=== PATIENT | female | born 1980 | race African-American/Black ===

== ENCOUNTER → 2020-01-04 | Day surgery (SDC) | payer OTHER ==
[~2020-01-04] MED LIST: FENTANYL CITRATE/PF 100MCG/2 ML INJ ONE; LIDOCAINE HCL 2% LOCAL INJ 5 ML SDV VIAL INJ ONE; MIDAZOLAM HCL 2 MG/2 ML VIAL ONE; MULTIVITAMINS1 EAC7 PO; PROPOFOL IV EMULSION 10 MG/ML 20 ML VIAL ONE
--- OUTSIDE RECORDS SUMMARY | 2020-01-04 07:15 | XMS REPORT ---
Author Author [facility] Organization [facility] Address Unknown Phone Unavailable Care Team Providers Care Senior Java Software Engineer Name Role Phone Unavailable Unavailable Problems This patient has no known problems. Allergies, Adverse Reactions, Alerts This patient has no known allergies or adverse reactions. Medications This patient has no known medications. Encounters Start Date/Time End Date/Time Encounter Type Admission Type [facility] Care Department Encounter ID 2018-12-29 13:19:25 Outpatient [id number]
[2020-01-04 14:05] VITALS: BP 134/90
--- NOTE | 2020-01-04 17:36 | Operative Report ---
DATE OF PROCEDURE: 01/04/2020 SURGEON: Juan Manuel Torres MD PREOPERATIVE DIAGNOSIS: Chronic gastroesophageal reflux disease. POSTOPERATIVE DIAGNOSES: 1. Hiatal hernia. 2. Chronic gastroesophageal reflux disease. 3. Submucosal nodule. PREOPERATIVE INDICATION: Assess for mucosal disease. PROCEDURE: Esophagogastroduodenoscopy with biopsies (CPT 91656). ANESTHESIA: Moderate sedation. ASSISTANTS: None. FLUID: As per anesthesia. ESTIMATED BLOOD LOSS: Minimal. DRAINS: None. COMPLICATIONS: None. SPECIMENS: Biopsy of antrum for submucosal mass, diagnostic purposes x2. GRAFTS: None. FINDINGS: 1. Small hiatal hernia. 2. Submucosal lesion in the antrum at the level of the lesser curvature of stomach. PROCEDURE IN DETAIL: The patient was brought into the endoscopy suite and was sedated with IV propofol. A preprocedure pause was performed. An adult-sized endoscope was introduced to the oropharynx and guided to the pylorus. The patient did not tolerate the procedure very well. She was dry heaving and because of this, her pylorus was quite spasmodic and I was not able to intubate and enter the duodenal bulb. However, I did identify a small hiatal hernia and submucosal 1 cm lesion in the antrum at the level of the lesser curvature of the stomach. This was biopsied x2 with cold forceps and sent to pathology. Prior to removing the scope, the stomach was desufflated. The patient tolerated the procedure moderately. Counts were correct. Juan Manuel Torres MD C/MODL /[id number]
== END | disposition home or self-care (01) ==
LOC: OR 07:13
PROVIDERS: ATTEND Surgery
DX: K21.9 Gastro-esophageal reflux disease without esophagitis (principal); K44.9 Diaphragmatic hernia without obstruction or gangrene; K31.89 Other diseases of stomach and duodenum; D64.9 Anemia, unspecified; E66.01 Morbid (severe) obesity due to excess calories; Z01.812 Encounter for preprocedural laboratory examination; Z11.59 Encounter for screening for other viral diseases; Z68.42 Body mass index [BMI] 45.0-49.9, adult
CPT/HCPCS: 43239; 81025; 87635; 88305; 88312; J2001; J2250; J2704; J3010

== ENCOUNTER 2020-02-01 09:42 | Inpatient (IN) | payer OTHER ==
[2020-01-28 11:32] LABS: BASOPHILS # (AUTO) 0.1 (0.0-0.1); BASOPHILS % 0.7 % (0.0-1.0); EOSINOPHILS # (AUTO) 0.2 (0.0-0.4); HEMATOCRIT 39.8 % (34.2-44.1); HEMOGLOBIN 12.9 g/dL (12.0-16.0); LYMPHOCYTES # (AUTO) 2.4 (1.0-3.2); LYMPHOCYTES % 30.9 % (18.0-39.1); MEAN CORPUSCULAR HEMOGLOBIN 29.7 pg (28-32); MEAN CORPUSCULAR HGB CONC 32.4 g/dL (31-35); MEAN CORPUSCULAR VOLUME 91.7 fL (81-99); MONOCYTES # (AUTO) 0.5 (0.2-0.8); MONOCYTES % 6.1 % (4.4-11.3); NEUTROPHILS # (AUTO) 4.5 (2.1-6.9); PLATELET COUNT 291 x10e3/uL (140-360); RED BLOOD COUNT 4.34 x10e6/uL (3.6-5.1); RED CELL DISTRIBUTION WIDTH 13.9 % (11.7-14.4)
[~2020-02-01] VITALS: Ht 157.5 cm; Wt 107.0 kg
[~2020-02-01 09:42] MED LIST changes: -FENTANYL CITRATE/PF 100MCG/2 ML INJ ONE; -LIDOCAINE HCL 2% LOCAL INJ 5 ML SDV VIAL INJ ONE; -MIDAZOLAM HCL 2 MG/2 ML VIAL ONE; -PROPOFOL IV EMULSION 10 MG/ML 20 ML VIAL ONE
[2020-02-01] MEDS ORDERED: CEFAZOLIN SOD 1 GM/NS 50ML 100 ML IV ONE (10:21)
[2020-02-01] MEDS ORDERED: BUPIVACAINE 0.25% 30ML SDV INJ ONE (10:35)
[2020-02-01] MEDS ORDERED: SCOPOLAMINE 1.5 MG PATCH TOP SCH (12:15)
[2020-02-01] MEDS ORDERED: LACTATED RINGER'S 1,000 ML IV SCH (12:15)
[2020-02-01] MEDS ORDERED: SUGAMMADEX SODIUM 200 MG/2 ML VIAL IV ONE (13:24)
[2020-02-01] MEDS ORDERED: FENTANYL CITRATE/PF 100MCG/2 ML INJ ONE (13:46)
--- NOTE | 2020-02-01 14:23 | Operative Report ---
DATE OF PROCEDURE: 02/01/2020 SURGEON: Juan Manuel Torres MD PREOPERATIVE DIAGNOSES: 1. Hiatal hernia. 2. Gastroesophageal reflux disease. POSTOPERATIVE DIAGNOSES: 1. Hiatal hernia. 2. Gastroesophageal reflux disease. PREOPERATIVE INDICATION: Treat disease, prevent complications related to reflux disease as well as hiatal hernia. PROCEDURE: Laparoscopic hiatal hernia repair. ANESTHESIA: General. RUBBER CURER: Chidi Olivia, regional vice president surgical sales (needed due to complexity of case). FLUIDS: 1 L crystalloid. ESTIMATED BLOOD LOSS: 20 mL. DRAINS: None. COMPLICATIONS: None. SPECIMENS: None. GRAFTS: None. FINDINGS: Hiatal hernia. GRAFTS: None. PROCEDURE IN DETAIL: The patient was brought to the operating room and was intubated under general endotracheal anesthesia. She was sterilely prepped and draped in the usual fashion. A preprocedure pause was performed, identifying the patient, use of preoperative antibiotics, intended procedure, and staff surgeon. Access was gained via a 5 mm left subcostal incision using a Veress needle. The abdomen was insufflated. Four additional trocars were placed in standard position. A liver retractor was used to expose the stomach and hiatus. I then incised the gastrohepatic ligament via the pars flaccida technique and was able to mobilize and dissect out a hiatal hernia from the right and left valdemar of the diaphragm. I then repaired the hiatus posteriorly with 2-0 Surgidac suture in an interrupted fashion in order to fix the crural defect. Once that was complete, we then verified hemostasis, removed the liver tractor and closed the large port site with 0 Vicryl suture using a Daljit Mercado technique. We then desufflated the abdomen and closed the incision sites with 4-0 Monocryl suture in a subcuticular fashion. Dermabond dressings were applied. A 0.25% bupivacaine was used both at the preperitoneal incision sites. The patient tolerated the procedure well. Type of wound was type 1, clean. Juan Manuel Torres MD C/MODL /[id number]
[2020-02-01] MEDS ORDERED: MORPHINE SULFATE 2 MG/ML SYR 1ML ONE ×2 (14:36→14:46)
--- NOTE | 2020-02-01 14:38 | Operative Report ---
DATE OF PROCEDURE: 02/01/2020 SURGEON: Juan Manuel Torres MD This is the self-pay portion. PREOPERATIVE DIAGNOSIS: Morbid obesity, BMI 44. POSTOPERATIVE DIAGNOSIS: Morbid obesity, BMI 44. PREOPERATIVE INDICATION: Treat disease, prevent complications related to comorbid conditions of obesity. PROCEDURES: Laparoscopic vertical sleeve gastrectomy. ANESTHESIA: General. FIRE CONTROL TECHNICIAN B: hCidi Olivia, surgical technician (needed due to complexity of case). FLUIDS: 1 L crystalloid. ESTIMATED BLOOD LOSS: 40 mL. DRAINS: None. COMPLICATION: None. SPECIMENS: Partial stomach. GRAFTS: None. FINDINGS: Negative intraoperative leak test. PROCEDURE IN DETAIL: The patient was brought to the operating room and was intubated under general endotracheal anesthesia. She was sterilely prepped and draped in the usual fashion. A preprocedure pause performed identifying the patient, use of perioperative antibiotics, intended procedure, and staff surgeon. Access was gained via a 5 mm left subcostal incision using a Veress needle. Abdomen was insufflated. Four additional trocars were placed in standard positions. The liver retractor was used to expose the stomach and hiatus. The stomach was mobilized along the greater curvature using the [place] LigaSure device from about 3 cm proximal to the pyloric valve to the left valdemar of the diaphragm. A 32-Salvad[place] suction bougie was placed along the lesser curvature of the stomach. The greater curvature of stomach was resected with multiple firings of a 60 mm purple load Covidien stapling device. Once that was complete, we then submerged the sleeve under saline and blue air through the bougie. No leaks were identified. The bougie was then removed. We then placed hemoclips on the staple line, where there were necessary. I closed the large port site with 0 Vicryl sutures a Daljit Mercado technique. The specimen was removed through the right periumbilical port site. I then verified hemostasis and removed the liver retractor. We desufflated the abdomen and closed the incision sites with 4-0 Monocryl suture in a subcuticular fashion. Dermabond dressings were applied. A 0.25% bupivacaine was used both at the preperitoneal incision sites. The patient tolerated the procedure well. Type of wound was type 2, clean, contaminated. MD DORINA Smyth/SOFIEL /[id number]
[2020-02-01] MEDS ORDERED: LABETALOL HCL 20 ML ONE (14:49)
[2020-02-01] MEDS ORDERED: KETOROLAC TROMETHAMINE 30 MG/ML VIAL ONE (15:03)
[2020-02-01] MEDS ORDERED: ACETAMINOPHEN 1000 MG/100 ML 100 ML IV ONE (15:03)
[2020-02-01] MEDS ORDERED: MORPHINE SULFATE INJ 4 MG/ML INJ 1ML ONE (15:14)
--- OUTSIDE RECORDS SUMMARY | 2020-02-01 15:22 | XMS REPORT | Continuity of Care Document ---
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 Diagnosis 04/24/2017 [id number] 2568 Supraventricular tachycardia A ctive Problem [id number] 2568 Leukocytosis, unspecified type Active Problem 2.16840.1.243375.4.391.11.2 2568 Acute viral syndrome Active Problem 04/24/2017 [id number] 2568 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 Adverse Reaction Info Not Available Adverse Reaction Active 04/16/2017 [id number] 2568 Immunizations No Data Provided for This Section Results No Data Provided for This Section Pathology Reports No Data Provided for This Section Diagnostic Reports No Data Provided for This Section Consultation Notes No Data Provided for This Section Discharge Summaries No Data Provided for This Section History and Physicals No Data Provided for This Section Vital Signs Vital Sign Value Date Comments Source Weight 241 04/16/2017 [id number] 2568 Height 61 0 04/16/2017 2.16.840.1.558948.4.391.11.2 2568 Temperature Oral (F) 98.8 F 04/16/2017 2.[id number] Heart Rate 94 04/16/2017 2.16.840.1.795196.4.391.11.2 2568 Diastolic (mm Hg) 80 04/16/2017 2.16.840.1.474909.4.391.11.16630 Systolic (mm Hg) 146 04/16/2017 2.16.840.1.474736.4.391.11.94062 Encounters No Data Provided for This Section Procedures No Data Provided for This Section Assessment and Plan No Data Provided for This Section Plan of Care No Data Provided for This Section Social History No Data Provided for This Section Family History No Data Provided for This Section Advance Directives No Data Provided for This Section Functional Status No Data Provided for This Section
--- OUTSIDE RECORDS SUMMARY | 2020-02-01 15:22 | XMS REPORT | Clinical Summary ---
Author Author [facility] Organization [facility] Address Unknown Phone Unavailable Care Team Providers Care Supervisor Record Press Name Role Phone Asked, No Pcp PCP Unavailable Allergies No Known Allergies Medications No known medications Active Problems No known active problems Resolved Problems Problem Noted Date Resolved Date Non-cardiac chest pain 01/07/2020 01/09/2020 Esophageal perforation (suspected) 01/07/202005/2020 Chronic GERD 01/07/2020 01/09/2020 Encounters Care Team Description Date Type Specialty Delmar Ruiz MD Non-cardiac chest pain (Primary Dx) 01/07/2020 [facility] Internal In dicine - Encounter 01/09/2020 01/07/2020 Travel 01/07/2020 Intake Access after 01/31/2019 Social History Date Tobacco Use Types Packs/Day Years Used Never Assessed Sex Assigned at Date Recorded Not on file Industry Job Start Date Occupation Not on file Not on file Not on file Travel End Travel History Travel Start No recent travel history available. Date Recorded COVID-19 Exposure Response 01/07/2020 4:43 PM CDT In the last month, have you been in contact with No / Unsure someone who was confirmed or suspected to have Coronavirus / COVID-19? Last Filed Vital Signs Reading Time Taken Comments Vital Sign 128/84 01/09/2020 7:57 AM CDT Blood Pressure 84 01/09/2020 7:57 AM CDT Pulse 36.7 C (98.1 F) 01/09/2020 7:57 AM CDT Temperature 18 01/09/2020 7:57 AM CDT Respiratory Rate 98% 01/09/2020 7:57 AM CDT Oxygen Saturation - - Inhaled Oxygen Concentration 111 kg (245 lb 8 oz) 01/09/2020 4:27 AM CDT Weight 157.5 cm (5' 2") 01/07/2020 5:15 PM CDT Height 44.9 01/07/2020 5:15 PM CDT Body Mass Index Plan of Treatment Health Maintenance Due Date Last Done Comments CERVICAL CANCER SCREENING 2002 INFLUENZA VACCINE 04/02/2020 Procedures Comments Procedure Name Priority Date/Time Associated Diag nosis ESTIMATED GFR Routine 01/09/2020 2:33 AM CDT PHOSPHORUS LEVEL Routine 01/09/2020 2:33 AM CDT IONIZED CALCIUM Routine 01/09/2020 2:33 AM CDT MAGNESIUM LEVEL Routine 01/09/2020 2:33 AM CDT CBC HEMOGRAM Routine 01/09/2020 2:33 AM CDT BASIC METABOLIC PANEL Routine 01/09/2020 2:33 AM CDT HELICOBACTER PYLORI ABS Routine 01/08/2020 8:56 AM CDT POC GLUCOSE Routine 01/08/2020 7:45 AM CDT TROPONIN Routine 01/08/2020 7:30 AM CDT ESTIMATED GFR Routine 01/08/2020 12:30 AM CDT PHOSPHORUS LEVEL Routine 01/08/2020 12:30 AM CDT MAGNESIUM LEVEL Routine 01/08/2020 12:30 AM CDT BASIC METABOLIC PANEL Routine 01/08/2020 12:30 AM CDT PARTIAL THROMBOPLASTIN Routine 01/08/2020 TIME (PTT) 12:30 AM CDT PROTHROMBIN TIME WITH INR Routine 01/08/2020 12:30 AM CDT HC COMPLETE BLD COUNT Routine 01/08/2020 W/AUTO DIFF 12:30 AM CDT POC GLUCOSE Routine 01/07/2020 11:[address] CHEST WO CONTRAST STAT 01/07/2020 9:09 PM CDT FL ESOPHAGRAM SINGLE STAT 01/07/2020 CONTRAST 9:08 PM CDT POC GLUCOSE Routine 01/07/2020 7:49 PM CDT POC GLUCOSE Routine 01/07/2020 6:27 PM CDT XR CHEST 1 VW PORTABLE STAT 01/07/2020 6:27 PM CDT ECG 12-LEAD STAT 01/07/2020 6:22 PM CDT HCG QUALITATIVE, URINE Routine 01/07/2020 SCREEN 6:00 PM CDT MANUAL DIFFERENTIAL Routine 01/07/2020 5:55 PM CDT ESTIMATED GFR Routine 01/07/2020 5:55 PM CDT TYPE AND SCREEN Routine 01/07/2020 5:55 PM CDT LACTIC ACID LEVEL Routine 01/07/2020 5:55 PM CDT PARTIAL THROMBOPLASTIN Routine 01/07/2020 TIME (PTT) 5:55 PM CDT PROTHROMBIN TIME WITH INR Routine 01/07/2020 5:55 PM CDT PHOSPHORUS LEVEL Routine 01/07/2020 5:55 PM CDT MAGNESIUM LEVEL Routine 01/07/2020 5:55 PM CDT CBC WITH PLATELET AND Routine 01/07/2020 DIFFERENTIAL 5:55 PM CDT BASIC METABOLIC PANEL Routine 01/07/2020 5:55 PM CDT after 01/31/2019 Results * Estimated GFR (01/09/2020 2:33 AM CDT) Only the most recent of 3 results within the time period is included. Estimated GFR >=90 mL/min/1.73 m2 [facility] Comment: [facility] Interpretation G1 >=90 Normal or high G2 60-89 Mildly decreased G3a 45-59 Mildly to moderately decreased G3b 30-44 Moderately to severely decreased G4 15-29 Severely decreased G5 <15 Kidney failure The eGFR was calculated using the Chronic Kidney Disease Epidemiology Collaboration (CKD-EPI) equation. Interpretation is based on recommendations of the National Kidney Foundation-Kidney Disease Outcomes Quality Initiative (NKF-KDOQI) published in 2014. Specimen Performing Organization Address City/[facility] Ph one Number [facility] DEPARTMENT OF [address] [place] [address] PATHOLOGY AND GENOMIC MEDICINE [address] * CBC hemogram (01/09/2020 2:33 AM CDT) WBC 7.63 4.50 - 11.00 k/uL [facility] RBC 3.93 (L) 4.20 - 5.50 m/uL [facility] HGB 11.9 (L) 12.0 - 16.0 g/dL [facility] HCT 35.9 (L) 37.0 - 47.0 % [facility] MCV 91.3 82.0 - 100.0 fL [facility] MCH 30.3 27.0 - 34.0 pg [facility] MCHC 33.1 31.0 - 37.0 g/dL [facility] RDW - SD 46.5 37.0 - 55.0 fL [facility] MPV 10.0 8.8 - 13.2 fL [facility] Platelet count 261 150 - 400 k/uL [facility] Nucleated RBC 0.00 /100 WBC [facility] Specimen Blood Performing Organization Address City/[facility] Ph one Number [facility] DEPARTMENT OF [address] [place] [address] PATHOLOGY AND GENOMIC MEDICINE [address] * Phosphorus level (01/09/2020 2:33 AM CDT) Only the most recent of 3 results within the time period is included. Phosphorus 2.9 2.4 - 4.5 mg/dL [facility] Specimen Blood Performing Organization Address City/[facility] Ph one Number [facility] DEPARTMENT OF [address] [place] [address] PATHOLOGY AND GENOMIC MEDICINE [address] * Magnesium level (01/09/2020 2:33 AM CDT) Only the most recent of 3 results within the time period is included. Magnesium 2.1 1.6 - 2.6 mg/dL [facility] Specimen Blood Performing Organization Address City/[facility] Ph one Number [facility] DEPARTMENT OF [address] [place] [address] PATHOLOGY AND GENOMIC MEDICINE [address] * Ionized calcium (01/09/2020 2:33 AM CDT) Pathologist [facility] pH 7.48 [facility] Ionized calcium 1.11 1.11 - 1.32 mmol/L [facility] Specimen Blood Performing Organization Address [facility] Ph one Number [facility] DEPARTMENT OF [address] [place] [address] PATHOLOGY AND [facility] MEDICINE [address] * Basic metabolic panel (01/09/2020 2:33 AM CDT) Only the most recent of 3 results within the time period is included. Pathologist [facility] Sodium 137 135 - 148 mEq/L [facility] Potassium 3.9 3.5 - 5.0 mEq/L [facility] Chloride 102 98 - 112 mEq/L [facility] CO2 25 24 - 31 mEq/L [facility] Anion gap 10@ANIO 7 - 15 mEq/L [facility] BUN 7 6 - 20 mg/dL [facility] Creatinine 0.90 0.50 - 0.90 mg/dL [facility] Glucose 90 65 - 99 mg/dL [facility] Calcium 8.8 8.3 - 10.2 mg/dL [facility] Specimen Blood Performing Organization Address [facility] Ph one Number [facility] DEPARTMENT OF [address] [place] [address] PATHOLOGY AND GENOMIC MEDICINE [address] * Helicobacter pylori Abs (01/08/2020 8:56 AM CDT) Pathologist [facility] Helicobacter Negative Negative [facility] Specimen Blood Performing Organization Address City/[facility] Ph one Number [facility] DEPARTMENT OF [address] [place] [address] PATHOLOGY AND GENOMIC MEDICINE [address] * POC glucose (01/08/2020 7:45 AM CDT) Only the most recent of 4 results within the time period is included. POC glucose 91 65 - 99 mg/dL [facility] Comment: PRESYBETERIAN Coating Machine Operator Helper Name: [facility] Device ID: [id number] Chartable: [facility] Notified RN Specimen Blood Performing Organization Address City/State/Zipcode Ph one Number [facility] DEPARTMENT OF [address] [place] [address] PATHOLOGY AND GENOMIC MEDICINE [place] PRESYBETERIAN [address] [place] [address] * Troponin (01/08/2020 7:30 AM CDT) Troponin <0.006 0.000 - 0.040 ng/mL [facility] Comment: PRESYBETERIAN In patients suspected of HOSPITAL having a myocardial infarction, along with all other appropriate clinical measures and actions including ECG and other diagnostics as appropriate, measure Ultra TnI at 0 hrs and at 3 hrs. Myocardial infarction VERY LIKELY The 0 hr TnI level is > 0.10 ng/mL Myocardial infarction LIKELY The 0 hr TnI level is > 0.04 ng/mL and 3 hr level is increased or decreased by at least 0.020 ng/mL Myocardial infarction VERY UNLIKELY Both the 0 hr and 3 hr TnI levels <= 0.04 ng/mL(within normal limits) OR 0 hr is > 0.04 ng/mL and 3 hr is increased OR decreased by less than 0.020 ng/mL Specimen Blood Performing Organization Address City/State/Zipcode Ph one Number [facility] DEPARTMENT OF [address] [place] [address] PATHOLOGY AND GENOMIC MEDICINE [place] [address] * Partial thromboplastin time, activated (01/08/2020 12:30 AM CDT) Only the most recent of 2 results within the time period is included. [facility] PTT 29.7 23.0 - 36.0 sec COMO Comment: PRESYBETERIAN PTT therapeutic range for HOSPITAL unfractionated heparin is 61.0-112.0 seconds which corresponds to Anti-Xa 0.3-0.7 U/ml. Specimen Blood Performing Organization Address City/State/[facility] Ph one Number [facility] DEPARTMENT OF [address] [place] [address] PATHOLOGY AND GENOMIC MEDICINE [address] * Prothrombin time with INR (01/08/2020 12:30 AM CDT) Only the most recent of 2 results within the time period is included. [facility] Prothrombin 13.7 11.5 - 14.5 sec [facility] INR 1.0 COMO Comment: PRESYBETERIAN The International Normalized HOSPITAL Ratio (INR) is a therapeutic monitoring tool for patients who are stable on oral anticoagulant therapy. An INR of 2.0-3.0 is suggested for deep vein thrombosis/pulmonary embolism. Specimen Blood Performing Organization Address City/[facility] Ph one Number [facility] DEPARTMENT OF [address] [place] [address] PATHOLOGY AND GENOMIC MEDICINE [address] * CBC with platelet and differential (01/08/2020 12:30 AM CDT) Only the most recent of 2 results within the time period is included. [facility] WBC 7.98 4.50 - 11.00 k/uL [facility] RBC 3.96 (L) 4.20 - 5.50 m/uL [facility] HGB 11.9 (L) 12.0 - 16.0 g/dL [facility] HCT 37.1 37.0 - 47.0 % [facility] MCV 93.7 82.0 - 100.0 fL [facility] MCH 30.1 27.0 - 34.0 pg [facility] MCHC 32.1 31.0 - 37.0 g/dL [facility] RDW - SD 48.7 37.0 - 55.0 fL [facility] MPV 10.2 8.8 - 13.2 fL [facility] Platelet count 260 150 - 400 k/uL [facility] Nucleated RBC 0.00 /100 WBC [facility] Neutrophils 56.3 39.0 - 69.0 % [facility] Lymphocytes 32.5 25.0 - 45.0 % [facility] Monocytes 7.9 0.0 - 10.0 % [facility] Eosinophils 2.8 0.0 - 5.0 % [facility] Basophils 0.4 0.0 - 1.0 % [facility] Immature 0.1Comment: "Immature 0.0 - 1.0 % [facility] granulocytes granulocytes" (promyelocytes, METHOD IST myelocytes, metamyelocytes) HOSPITAL Specimen Blood Performing Organization Address City/State/[facility] Ph one Number [facility] DEPARTMENT OF [address] [place] [address] PATHOLOGY AND GENOMIC MEDICINE [address] * CT Chest Wo Contrast (01/07/2020 9:09 PM CDT) Specimen Narrative Performed At EXAMINATION: CT CHEST WO CONTRAST [facility] CLINICAL HISTORY: 39 years Female jose roberto rn for esophageal perforation TECHNIQUE: Multiple axial images of t chest were obtained without intravenous contrast. Sagittal and ratna nal computerized reformatted images were also obtained. CT imaging was performed with iterative reconstruction techniques and/or automated exposure control to reduce radiation do se. COMPARISON: To a chest x-ray from earlier the day, and 2013 IMPRESSION: Lungs and airways: No acute airspace di sease or suspicious pulmonary nodules. Pleura: No pleural effusion or pneumoth orax. Mediastinum and lymph nodes: No lymphad enopathy. Cardiovascular: The heart size is michelle l. No pericardial effusion. The thoracic aorta is normal in caliber. Upper abdomen: Residual contrast in the stomach obscures detail. Bones: No suspicious osseous lesions. Other: None. SUMMARY: 1.Negative examination. [facility]-[id number] Procedure Note Interface, Radiology Results Incoming - 01/07/2020 9:15 PM CDT EXAMINATION: CT CHEST WO CONTRAST CLINICAL HISTORY: 39 years Female concern for esophageal perforation TECHNIQUE: Multiple axial images of the chest were obtained without intravenous contrast. Sagittal and coronal computerized reformatted images were also obtained. CT imaging was performed with iterative reconstruction techniques and/or automated exposure control to reduce radiation dose. COMPARISON: To a chest x-ray from earlier the day, and 2013 IMPRESSION: Lungs and airways: No acute airspace disease or suspicious pulmonary nodules. Pleura: No pleural effusion or pneumothorax. Mediastinum and lymph nodes: No lymphadenopathy. Cardiovascular: The heart size is normal. No pericardial effusion. The thoracic aorta is normal in caliber. Upper abdomen: Residual contrast in the stomach obscures detail. Bones: No suspicious osseous lesions. Other: None. SUMMARY: 1.Negative examination. [facility]-[id number] Performing Organization Address [facility] one Number [facility] [address] [place] [address] * FL Esophagram Single Contrast (01/07/2020 9:08 PM CDT) Specimen Narrative Performed At EXAMINATION: FL ESOPHAGRAM SINGLE CONTRAST [facility] CLINICAL HISTORY: possible esophageal perforation COMPARISON: None. Fluoroscopy time: Less than 1 minute. D ose equals 24 mGy a. FINDINGS: Soluble contrast was utilized. There is no evidence of esophageal perforation or extravasation of contrast. Esophageal m otility was normal, and contrast flows freely into the stomach. IMPRESSION: Normal esophagram. [facility]-[id number] Procedure Note Interface, Radiology Results Incoming - 01/07/2020 9:14 PM CDT EXAMINATION: FL ESOPHAGRAM SINGLE CONTRAST CLINICAL HISTORY: possible esophageal perforation COMPARISON: None. Fluoroscopy time: Less than 1 minute. Dose equals 24 mGy a. FINDINGS: Soluble contrast was utilized. There is no evidence of esophageal perforation or extravasation of contrast. Esophageal motility was normal, and contrast flows freely into the stomach. IMPRESSION: Normal esophagram. [facility]-[id number] Performing Organization Address [facility] one Number [facility] [address] [place] [address] * XR Chest 1 Vw Portable (01/07/2020 6:27 PM CDT) Specimen Narrative Performed At Examination: XR CHEST 1 VW PORTABLE [facility] Clinical history: "UVC line placement Post Operative" Comparison: 06/08/2014 IMPRESSION: There are no new alveolar opacities wit hin either lung. No pneumothoraces are identified. The cardiomediastinal silhouette is unc hanged. The bones of the chest are unchanged. [facility] Procedure Note Hm Interface, Radiology Results Incoming - 01/07/2020 6:43 PM CDT Examination: XR CHEST 1 VW PORTABLE Clinical history: "UVC line placement Post Operative" Comparison: 06/08/2014 IMPRESSION: There are no new alveolar opacities within either lung. No pneumothoraces are identified. The cardiomediastinal silhouette is unchanged. The bones of the chest are unchanged. [facility] Performing Organization Address [facility] one Number [facility] [address] [place] [address] * ECG 12 lead (01/07/2020 6:22 PM CDT) Pathologist [facility] Ventricular 75 [facility]USE rate Atrial rate 75 [facility] WA interval 116 [facility] QRSD interval 72 [facility] QT interval 378 [facility] QTC interval 422 [facility] P axis 1 6 [facility] QRS axis 1 42 [facility] T wave axis 48 [facility] EKG impression Normal sinus rhythm-Normal [facility] MUSE ECG-- Specimen Narrative Performed At This result has an attachment that is n ot available. Performing Organization Address [facility] one Number [address] [address] * hCG qualitative, urine screen (01/07/2020 6:00 PM CDT) [facility] hCG NegativeComment: Sensitivity [facility] qualitative, of HCG test: 25 mIU/mL PRESYBETERIAN urine [facility] Specimen Urine Performing Organization Address [facility] one Number [facility] DEPARTMENT OF [address] [place] [id number] PATHOLOGY AND GENOMIC MEDICINE [address] * Manual differential (01/07/2020 5:55 PM CDT) [facility] Manual PERFORMED [facility] Neutrophils 53.0 39.0 - 69.0 % [facility] Lymphocytes 37.0 25.0 - 45.0 % [facility] Monocytes 5.0 0.0 - 10.0 % [facility] Eosinophils 5.0 0.0 - 5.0 % [facility] Basophils 0.0 0.0 - 1.0 % [facility] Metamyelocytes 0 % [facility] Promyelocytes 0 % [facility] Reactive Few COMO lymphocytes [facility] Platelet slide Abdi adequate [facility] Enlarged Moderate (A) [facility] platelets [facility] Specimen Performing Organization Address City/State/[facility] Ph one Number [facility] DEPARTMENT OF [address] [place] [address] PATHOLOGY AND GENOMIC MEDICINE [address] * Type and screen (01/07/2020 5:55 PM CDT) ABO grouping A [facility] Rh type POS [facility] Antibody screen NEG COMO (gel) [facility] Specimen Blood Performing Organization Address City/[facility] Ph one Number [facility] DEPARTMENT OF [address] [place] [address] PATHOLOGY AND GENOMIC MEDICINE [address] * Lactic acid level (01/07/2020 5:55 PM CDT) Lactic acid 1.0 0.5 - 2.2 mmol/L [facility] Specimen Blood Performing Organization Address City/[facility]/Zipcode Ph one Number [facility] DEPARTMENT OF [address] [place] [address] PATHOLOGY AND GENOMIC MEDICINE [address] after 01/31/2019 Insurance Type Payer Benefit Subscriber ID Effective Phone Address Plan / Dates Group HMO AETNA AETNA xxxxxxxxxx 2017- HMO,POS,EP Present O, MC/EC Advance Directives For more information, please contact: [phone] Patient Inspector Exhaust Emissions Explanation Type Date Recorded Advance Directives, 09/27/2016 7:16 PM Living Will and Medical Power of Director [employer]
--- OUTSIDE RECORDS SUMMARY | 2020-02-01 15:22 | XMS REPORT ---
Author Author [facility] t Organization [facility] Address [address] [place] [address] Phone Unavailable Care Team Providers Care Hydroponics Worker Name Role Phone Asked, Pcp No PCP Unavailable Joseph CHEN, Y.H. Delmar Attphys MANTENA, JANET Attphys Unavailable DELMAR RUIZ Admphys Unavailable MANTENA, JANET Admphys Unavailable Payers Payer Name Policy Type Policy Number Effective Date Expiration Date S ource AETNAAETNA HMO,POS,EPO, [id number]/[id number]-PresentHMO xxxxxxxxxx 2017 00:00:00 [facility] [employer] Problems Condition Name Condition Details Condition Category Status Onset Date Resolution Date Last Treatment Date Treating Clinician Comments Source Neutrophilic leukocytosis Neut rophilic leukocytosis Active Diagnosis 04/24/2017 2..840.1.591440.4.391.11.33266 Diagnosis Active 2017-04-24 02:45:30 2..840 .1.255040.4.391.11.41943 Chikungunya virus disease Chik ungunya virus disease Active Diagnosis 04/24/2017 2.16.840.1.132832.4.391.11.69288 Diagnosis Active 2017-04-24 02:45:30 2.16.840 .1.288468.4.391.11.79177 Zika virus exposure Zika virus exposure Active Diagnosis 04/24/2017 2.16.840.1.841802.4.391.11.50051 Diagnosis Active 2017-04-24 02:45:30 2.16.840.1.011083.4. 391..59582 Supraventricular tachycardia S upraventricular tachycardia Active Problem 04/24/2017 2.16.840.1.189467.4.391.11.76843 Problem Active 2017-04-24 02:45:30 2.16. 840.1.652916.4.391.11.27839 Leukocytosis, unspecified type Leukocytosis, unspecified type Active Problem 04/24/2017 2.16.840.1.046367.4.391.11.61180 Problem Ac tive 2017-04-24 02:45:30 2.16.840.1.1 00318.4.391.11.38309 Acute viral syndrome Acut e viral syndrome Active Problem 04/24/2017 2.16.840.1.391059.4.391.11.51002 Problem Active 2017-04-24 02:45:30 2.16.840.1.952002.4. 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 391.11.27996 Fibroids Fibr oids Active Problem 04/24/2017 2.16.840.1.707203.4.391.11.03192 Problem Active 2017-04-24 02:45:30 2.16.840.1.586518.4.391.11.02495 Non-cardiac chest pain Non-cardiac chest pain Disease Resolved 2020-01-07 00:00:00 2020-01-09 00:00:00 2020-01-09 08:02:20 H buzz Hernandes Esophageal perforation (suspected) Esophageal perforation (suspe cted) Disease Resolved 2020-01-07 00:00:00 2020-01-09 00:00:00 2020-01-09 08:02:22 Kodi Hernandes Chronic GERD Chronic GERD Disease Resolved 2020-01-07 00:00:00 2 00:00:00 2020-01-09 08:02:23 Kodi Meth odist Allergies, Adverse Reactions, Alerts Allergy Name Allergy Type Status Severity Reaction(s) Onset Date Inacti ve Date Treating Clinician Comments Source Jeff Hu.Jyothi Active Info Not Available 2017-04-16 00:00:00 [facility] Social History Social Habit Start Date Stop Date Quantity Comments Source Sex Assigned At Kris Hernandes Exposure to SARS-CoV-2 (event) Not sure Kodi Henaoist Medications This patient has no known medications. Vital Signs Vital Name Observation Time Observation Value Comments Source Systolic blood pressure 2020-01-09 07:57:50 128 mm[Hg] Kodi Hernandes Diastolic blood pressure 2020-01-09 07:57:50 84 mm[Hg] Kodi Hernandes Heart rate 2020-01-09 07:57:50 84 /min Kodi Hernandes Body temperature 2020-01-09 07:57:50 36.72 Raquel Hous [place] [facility] Respiratory rate 2020-01-09 07:57:50 18 /min Paulo ton [facility] Oxygen saturation in Arterial blood by Pulse oximetry 01-08 07:57:50 98 /min Kodi Hernandes Body weight 2020-01-09 04:27:53 111.358 kg Kodi Hernandes BMI 2020-01-09 04:27:53 44.90 kg/m2 Kodi Hernandes Body height 2020-01-07 17:15:00 157.5 cm Kodi Hernandes Weight 2017-04-16 20:30:00 2.16.840 .1.050267.4.391.11.28486 Height 2017-04-16 20:30:00 2.16.840 .1.130216.4.391.11.14002 Temperature Oral (F) 2017-04-16 20:30:00 98.8 F 2.16.840.1.839462.4.391.11.13324 Heart Rate 2017-04-16 20:30:00 2.16.840 .1.493841.4.391.11.83297 Diastolic (mm Hg) 2017-04-16 20:30:00 2.1 6.840.1.382059.4.391.11.82986 Systolic (mm Hg) 2017-04-16 20:30:00 2.16 .840.1.652225.4.391.11.67169 Procedures Procedure Date / Time Performed Performing Clinician [facility] e BASIC METABOLIC PANEL 2020-01-09 02:33:00 Christine Vizcaino CBC HEMOGRAM 2020-01-09 02:33:00 Christine Vizcaino ethodist MAGNESIUM LEVEL 2020-01-09 02:33:00 Christine Vizcaino ethodist IONIZED CALCIUM 2020-01-09 02:33:00 Christine Vizcaino ethodist PHOSPHORUS LEVEL 2020-01-09 02:33:00 Christine Vizcaino ESTIMATED GFR 2020-01-09 02:33:00 Christine Vizcaino ethodist HELICOBACTER PYLORI ABS 2020-01-08 08:56:00 Rupa Ragland [facility] POC GLUCOSE 2020-01-08 07:45:00 Delmar Ruiz La thodist TROPONIN 2020-01-08 07:30:00 Julio C Mohamud Me thodist HC COMPLETE BLD COUNT W/AUTO DIFF 2020-01-08 00:30:00 Torito Torres [facility]ational PROTHROMBIN TIME WITH INR 2020-01-08 00:30:00 Jeanne Torres [facility] PARTIAL THROMBOPLASTIN TIME (PTT) 2020-01-08 00:30:00 Torito Torres [facility] BASIC METABOLIC PANEL 2020-01-08 00:30:00 Jeanne Torres on Congregational MAGNESIUM LEVEL 2020-01-08 00:30:00 Jeanne Torres Met hodist PHOSPHORUS LEVEL 2020-01-08 00:30:00 Jeanne Torres Me thodist ESTIMATED GFR 2020-01-08 00:30:00 Delmar Ruiz Me thodist POC GLUCOSE 2020-01-07 23:48:[address] Delmar Ru[address] thodist CT CHEST WO CONTRAST 2020-01-07 21:09:09 Jeanne Torres FL ESOPHAGRAM SINGLE CONTRAST 2020-01-07 21:08:13 Pankaj Torres POC GLUCOSE 2020-01-07 19:49:00 Delmar Ruiz Me thodist XR CHEST 1 VW PORTABLE 2020-01-07 18:27:00 Christine Vizcaino POC GLUCOSE 2020-01-07 18:27:00 Delmar Ruiz Me thodist ECG 12-LEAD 2020-01-07 18:22:42 Christine Vizcaino ethodist HCG QUALITATIVE, URINE SCREEN 2020-01-07 18:00:00 Hai Vizcaino BASIC METABOLIC PANEL 2020-01-07 17:55:00 Christine Vizcaino storolanda Hernandes CBC WITH PLATELET AND DIFFERENTIAL 2020-01-07 17:55:00 Christine Vizcaino MAGNESIUM LEVEL 2020-01-07 17:55:00 Christine Vizcaino ethodist PHOSPHORUS LEVEL 2020-01-07 17:55:00 Christine Vizcaino PROTHROMBIN TIME WITH INR 2020-01-07 17:55:00 Christine Vizcaino PARTIAL THROMBOPLASTIN TIME (PTT) 2020-01-07 17:55:00 Dirk Vizcaino LACTIC ACID LEVEL 2020-01-07 17:55:00 Christine Vizcaino TYPE AND SCREEN 2020-01-07 17:55:00 Christine Vizcaino ethodist ESTIMATED GFR 2020-01-07 17:55:00 Christine Vizcaino ethodist MANUAL DIFFERENTIAL 2020-01-07 17:55:00 Christine Vizcaino Plan of Care Planned Activity Planned Date Details Comments Source Future Scheduled Test 2020-04-02 00:00:00 INFLUENZA VACCINE [code = INFLUENZA VACCINE] Kodi Hernandes Future Scheduled Test 2002 00:00:00 Screening for margarita gnant neoplasm of cervix (procedure) [code = 397721173] Kodi Asif t Encounters Start Date/Time End Date/Time Encounter Type [facility] Encounter ID Source 2020-02-01 15:22:28 Outpatient MHIEALT MHIEALT [id number] [facility] 2018-12-29 13:19:25 Outpatient MHFB MHFB [id number] MHFB 2020-01-07 00:00:00 2020-01-09 00:00:00 Inpatient DELMAR RUIZ [id number] Kodi Hernandes 2017-04-16 15:30:00 2017-04-16 15:30:00 Outpatient [facility] [id number] [employer] 2016-09-27 00:00:00 2016-09-27 00:00:00 Emergency TERESA BELLO [facility] [id number] Kodi Hernandes Results Test Description Test Time Test Comments Results Result Comments Source Ionized calcium 2020-01-09 03:29:43 Test Item pH (test code = 2753-2) 7.48 Ionized calcium (test code = 1994-0) 1.11 mmol/L 1.11-1.32 Kodi HernandesBasic metabolic qdqyw6977-72-04 03:25:06* Test Item Value Reference Range Interpretation Comments Sodium (test code = 2951-2) 137 135- 148 mEq/L Potassium (test code = 2823-3) 3.9 3.5- 5.0 mEq/L Chloride (test code = 2075-0) 102 98- 112 mEq/L CO2 (test code = 8-9) 25 24- 31 mEq/L Anion gap (test code = 63822-7) 10@ANIO 7- 15 mEq/L BUN (test code = 3094-0) 7 mg/dL 6-20 Creatinine (test code = 2160-0) 0.90 mg/dL 0.5-0.9 Glucose (test code = 2345-7) 90 mg/dL 65-99 Calcium (test code = 53304-5) 8.8 mg/dL 8.3-10.2 Kodi HernandesMagnesium [id number] 03:25:06* Test Item Value Reference Range Interpretation Comments Magnesium (test code = 17005-2) 2.1 mg/dL 1.6-2.6 Kodi MethodistEstimated [id number] 03:25:05* Test Item Value Reference Range Interpretation Comments Estimated GFR (test code = 5488) >=90 mL/min/1.73 m2 Catergory Units InterpretationG1 >=90 Normal or highG2 60-89 Mildly ojssplucbO2e 45-59 Mildly to moderately npczbjivxH4c 30-44 Moderately to severely decreasedG4 15-29 Severely decreasedG5 <15 Kidney failureThe eGFR was calculated using the Chronic Kidney Disease Epidemiology Collaboration (CKD-EPI) equation. Interpretation is based on recommendations of the National Kidney Foundation-Kidney Disease Outcomes Quality Initiative (NKF-KDOQI) published in 2014. Kodi HernandesPhosphorus kloly0303-89-74 03:25:04* Test Item Value Reference Range Interpretation Comments Phosphorus (test code = 2777-1) 2.9 mg/dL 2.4-4.5 Mariee CongregationalCBC oghxxymt0557-17-91 02:49:29* Test Item Value Reference Range Interpretation Comments WBC (test code = 87541-6) 7.63 4.50- 11.00 k/uL RBC (test code = 03739-2) 3.93 m/uL 4.2-5.5 L HGB (test code = 718-7) 11.9 g/dL 12-16 L HCT (test code = 4544-3) 35.9 % 37-47 L MCV (test code = 787-2) 91.3 fL 82-100 MCH (test code = 785-6) 30.3 pg 27-34 MCHC (test code = 786-4) 33.1 g/dL 31-37 RDW - SD (test code = 77034-3) 46.5 fL 37-55 MPV (test code = 83444-0) 10.0 fL 8.8-13.2 Platelet count (test code = 96295-8) 261 150- 400 k/uL Nucleated RBC (test code = 01968-1) 0.00 /100 WBC Lab Interpretation (test code = 52265-9) Abnormal Kodi HenaokipHelicobacter pylori [id number] 21:20:10* Test Item Value Reference Range Interpretation Comments Helicobacter pylori antibodies (test code = 5174-8) Negative Ne gative Mariee MethodistECG 12 fzky1233-00-48 09:03:32* Test Item Value Reference Range Interpretation Comments Ventricular rate (test code = 253) 75 Atrial rate (test code = 255) 75 IL interval (test code = 266) 116 QRSD interval (test code = 260) 72 QT interval (test code = 264) 378 QTC interval (test code = 265) 422 P axis 1 (test code = 267) 6 QRS axis 1 (test code = 268) 42 T wave axis (test code = 270) 48 EKG impression (test code = 273) Normal sinus rhythm-N ormal ECG-- [place] QayqjnwrcGdkevyex4903-94-08 08:09:12* Test Item Value Reference Range Interpretation Comments Troponin (test code = 20771-7) <0.006 0-0.04 In patients suspected of having a myocardial infarction, along with all other appropriate clinical measures and actions including ECG and other diagnostics as appropriate, measure Ultra TnI at 0 hrs and at 3 hrs.Myocardial infarction VERY LIKELYThe 0 hr TnI level is > 0.10 ng/mL Amaury cardial infarction LIKELYThe 0 hr TnI level is > 0.04 ng/mL and 3 hr level is increased or decreased by at least 0.020 ng/mL Myocardi al infarction VERY UNLIKELYBoth the 0 hr and 3 hr TnI levels <= 0.04 ng/mL(within normal limits) OR 0 hr is > 0.04 ng/mL and 3 hr is increased OR decreased by less than 0.020 ng/mL [facility] hidvmey7740-19-61 07:47:06* Test Item Value Reference Range Interpretation Comments POC glucose (test code = 23747-1) 91 mg/dL 65-99 Supervisor Logging Name: Saeed Rayo ID: [id number]: [facility] Notified RN Kodi HernandesPartial thromboplastin time, rqlcuxave7711-61-69 01:05:45* Test Item Value Reference Range Interpretation Comments PTT (test code = 69306-4) 29.7 23.0- 36.0 sec PTT therapeutic range for unfractionated heparin is61.0-112.0 seconds which corresponds to Anti-Xa0.3-0.7 U/ml. Kodi HenaoistProthrombin time with CJS5447-61-76 01:05:03* Test Item Value Reference Range Interpretation Comments Prothrombin time (test code = 5902-2) 13.7 11.5- 14.5 sec INR (test code = 17776-0) 1.0 Th e International Normalized Ratio (INR) is a therapeutic monitoring tool for patients who are stable on oral anticoagulant therapy. An INR of 2.0-3.0 is suggested for deep vein thrombosis/pulmonary embolism. Kodi MethodistCBC with platelet and ibcyniuccqsg9942-69-06 00:57:39* Test Item Value Reference Range Interpretation Comments WBC (test code = 74316-9) 7.98 4.50- 11.00 k/uL RBC (test code = 16917-5) 3.96 m/uL 4.2-5.5 L HGB (test code = 718-7) 11.9 g/dL 12-16 L HCT (test code = 4544-3) 37.1 % 37-47 MCV (test code = 787-2) 93.7 fL 82-100 MCH (test code = 785-6) 30.1 pg 27-34 MCHC (test code = 786-4) 32.1 g/dL 31-37 RDW - SD (test code = 17668-3) 48.7 fL 37-55 MPV (test code = 03148-2) 10.2 fL 8.8-13.2 Platelet count (test code = 34864-3) 260 150- 400 k/uL Nucleated RBC (test code = 47295-8) 0.00 /100 WBC Neutrophils (test code = 83405-5) 56.3 % 39-69 Lymphocytes (test code = 98279-8) 32.5 % 25-45 Monocytes (test code = 38565-4) 7.9 % 0-10 Eosinophils (test code = 09084-1) 2.8 % 0-5 Basophils (test code = 66777-3) 0.4 % 0-1 Immature granulocytes (test code = 67141-6) 0.1 % 0-1 "Immature granulocytes" (promyelocytes, myelocytes, metamyelocytes) Lab Interpretation (test code = 00333-0) Abnormal [place] MethodistCT Chest Wo Ydemlrkx1601-29-59 21:12:11Hm Interface, Radiology Results 01/07/2020 9:15 PM CDTEXAMINATION: CT CHEST WO CONTRASTCLINICAL HISTORY: 39 years Female concern for esophageal perf orationTECHNIQUE: Multiple axial images of the chest were obtained without intr avenous contrast. Sagittal and coronal computerized reformatted images were also obtained. CT imaging was performed with iterative reconstruction techniques and /or automated exposure control to reduce radiation dose. COMPARISON:To a chest x-ray from earlier the day, and 2013IMPRESSION:Lungs and airways: No acute airsp khadar disease or suspicious pulmonary nodules. Pleura: No pleural effusion or pneu mothorax.Mediastinum and lymph nodes: No lymphadenopathy. Cardiovascular: The he art size is normal. No pericardial effusion. The thoracic aorta is normal in basilio iber.Upper abdomen: Residual contrast in the stomach obscures detail.Bones: No s uspicious osseous lesions. Other: None.SUMMARY:1.Negative examination.[facility]-[id number] MethodistFL Esophagram Single Rdrqeoij7719-57-01 21:10:55Hm Interface, Radiology Results 01/07/2020 9:14 PM CDTEXAMINATION: [place] ESOPHAGRAM SINGLE CONTRASTCLINICAL HISTORY: possible esophageal perforationC OMPARISON: None.Fluoroscopy time: Less than 1 minute. Dose equals 24 mGy a.FIND INGS: Soluble contrast was utilized. There is no evidence of esophageal perforat ion or extravasation of contrast. Esophageal motility was normal, and contrast f lows freely into the stomach.IMPRESSION:Normal esophagram.[facility]-[id number] MethodistManual iciwhfctevav7588-17-61 20:27:13* Test Item Value Reference Range Interpretation Comments Manual differential (test code = 25752-1) PERFORMED Neutrophils (test code = 87806-8) 53.0 % 39-69 Lymphocytes (test code = 64752-5) 37.0 % 25-45 Monocytes (test code = 34608-4) 5.0 % 0-10 Eosinophils (test code = 07520-1) 5.0 % 0-5 Basophils (test code = 64307-0) 0.0 % 0-1 Metamyelocytes (test code = 740-1) 0 % Promyelocytes (test code = 783-1) 0 % Reactive lymphocytes (test code = 733-6) Few Platelet slide review (test code = 16156-4) Abdi adequate Enlarged platelets (test code = 46153-2) Moderate A Lab Interpretation (test code = 46659-9) Abnormal Kodi MethodistType and ezmpzh2957-58-71 19:45:00* Test Item Value Reference Range Interpretation Comments ABO grouping (test code = 883-9) A Rh type (test code = 71212-8) POS Antibody screen (gel) (test code = 890-4) NEG Kodi HernandeshCG qualitative, urine bvdyog8551-24-80 18:45:13* Test Item Value Reference Range Interpretation Comments hCG qualitative, urine (test code = 2106-3) Negative Sensitivity of HCG test: 25 mIU/mL Kodi HernandesXR Chest 1 Vw Cwgoolcq9482-20-19 18:40:14Hm Interface, Radiology Results - 01/07/2020 6:43 PM CDTExamination: XR CHEST 1 VW PORTABLEClinical history: "UVC line placement Post Operative" Comparison: 06/08/2014 IMPRESSION: There are no new alveolar opacities within either lung. No pneumothoraces are identified.The cardiomediastinal silhouette is unchanged. The bones of the chest are unchanged. [facility]-Jannet HenaoistLactic acid snofh5701-89-93 18:36:42* Test Item Value Reference Range Interpretation Comments Lactic acid (test code = 41617-0) 1.0 mmol/L 0.5-2.2 Kodi Hernandes
--- OUTSIDE RECORDS SUMMARY | 2020-02-01 15:22 | XMS REPORT ---
Author Author JANET Sofia Organization [employer] Address Unknown Phone Unavailable Care Team Providers Care [place] Worker Name Role Phone Mariam Sofia CP Unavailable Allergies, Adverse Reactions, Alerts Substance Reaction Event Type N.K.D.A. 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
[2020-02-01] MEDS ORDERED: HYDROMORPHONE 1MG/1ML INJ ONE ×2 (15:41→16:38)
[2020-02-01 17:56] VITALS: BP 143/106
[2020-02-01] MEDS ORDERED: ETOMIDATE 2 MG/ML 10 ML INJ IV ONE (18:14)
[2020-02-01] MEDS ORDERED: ONDANSETRON HCL INJ 2MG/ML 2ML 2 MG/ML VIAL ONE (18:14)
[2020-02-01] MEDS ORDERED: LABETALOL HCL 5 MG/ML 20ML VIAL ONE (18:14)
[2020-02-01] MEDS ORDERED: DESFLURANE 240 ML BTL INH ONE (18:14)
[2020-02-01] MEDS ORDERED: DEXAMETHASONE SOD PHOS INJ 4 MG/ML VIAL ONE (18:14)
[2020-02-01] MEDS ORDERED: ROCURONIUM BROMIDE 10 MG/ML 5ML VIAL IV ONE (18:14)
[2020-02-01 18:15] VITALS: BP 143/106
[2020-02-01] MEDS: MORPHINE SULFATE 2 MG/ML SYR 1ML IV PRN ×2 (18:26→21:39)
[2020-02-01] MEDS: ONDANSETRON HCL INJ 2MG/ML 2ML 2 MG/ML VIAL IV PRN (18:28)
--- NOTE | 2020-02-01 19:20 | History and Physical ---
CHIEF COMPLAINT: "I had weight loss surgery." HISTORY OF PRESENT ILLNESS: This is a 39-year-old -[place] woman, who was admitted to [facility] with diagnosis of extreme obesity, thus complicating her underlying GERD. She was also admitted with a diagnosis of GERD secondary to hiatal hernia. During this hospitalization, the patient underwent laparoscopic hiatal hernia repair as well as laparoscopic vertical sleeve gastrectomy. The patient tolerated these two surgical procedures well. The patient currently states she has some pain, but it is controlled with intravenous pain medication. The patient denies nausea and vomiting. The patient states she has belched after surgery. According to nursing staff, she is already ambulating to the bathroom. REVIEW OF SYSTEMS: GENERAL: Weight is stable. No fever or chills. HEENT: No headaches. No vision changes. CARDIOVASCULAR/RESPIRATORY: No chest pain. No shortness of breath or cough. GI: Slight abdominal pain. No nausea or vomiting. No diarrhea. : No UTI symptoms. No Nova catheter is in place. NEUROMUSCULAR: No limb weakness or numbness. PAST MEDICAL HISTORY: 1. Gastroesophageal reflux disease secondary to hiatal hernia. 2. Extreme obesity. FAMILY HISTORY: Both parents have hypertension. SOCIAL HISTORY: This woman is and lives with her . 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 No history of active tobacco use, but she does drink alcohol socially. PAST SURGICAL HISTORY: 1. Myomectomy twice. 2. Left wrist open reduction and internal fixation to repair a traumatic fracture. 3. Left ankle open reduction and internal fixation to repair traumatic fracture. ALLERGIES: NO KNOWN DRUG ALLERGIES. MEDICATIONS: Multivitamin daily. PHYSICAL EXAMINATION: GENERAL: She is awake, alert and fully oriented, in no distress, very pleasant and cooperative with exam. VITAL SIGNS: Height 5 feet 2 inches, weight 244 pounds. BMI is 44. Blood pressure 142/106, pulse 84, respiratory rate 16, oxygen saturation is 96% on room air, and temperature 98.0. Blood pressure earlier did get as high as 160/100. INTEGUMENT: Skin is warm and dry. No pallor, jaundice, or diaphoresis. HEENT: Anterior sclerae. Moist mucous membranes. NECK: Supple. CARDIOVASCULAR: Distant heart sounds. Regular rate and rhythm. LUNGS: No rales. No rhonchi. No wheezes. ABDOMEN: Obese, benign. No bowel sounds are auscultated. The patient's laparoscopic incisions are clean, dry, and intact. No drainage. EXTREMITIES: No edema or deformity. She is currently wearing sequential compression devices. NEUROLOGIC: Intact. DIAGNOSES: 1. Status post laparoscopic vertical sleeve gastrectomy. 2. Laparoscopic hiatal hernia repair. 3. Extreme obesity, BMI 44. 4. Hypertension. 5. Gastroesophageal reflux disease secondary to hiatal hernia. PLAN: 1. Start clear liquids. 2. Intravenous fluids. 3. Monitor and control blood pressure. 4. Pain control. 5. Mobilize patient. 6. Recommend the patient to use incentive spirometry to prevent atelectasis. 7. Start enoxaparin subcutaneously twice a day to prevent deep venous thrombosis. 8. Follow hemoglobin and hematocrit as well as renal function and electrolytes. I would like to thank Dr. Negron for involving me in the care of this patient. I spent 40 minutes in the care of the patient. MD TERESA Toth/MELISSA /[id number] MTDLizbeth
[2020-02-01 20:00] VITALS: BP 137/98
[2020-02-01] MEDS ORDERED: SIMETHICONE 80 MG CHEW PO PRN ×2 (21:45)
[2020-02-01] MEDS: ENOXAPARIN SOD INJ 40 MG/0.4 ML SYR SC SCH (21:52)
[2020-02-02] VITALS (8 sets, daily range): BP systolic 142–177; BP diastolic 88–110
[2020-02-02] MEDS: MORPHINE SULFATE 2 MG/ML SYR 1ML IV PRN ×2 (05:49→20:55)
[2020-02-02 05:50] LABS: BASOPHILS % 0.2 % (0.0-1.0); HEMATOCRIT 38.1 % (34.2-44.1); HEMOGLOBIN 12.6 g/dL (12.0-16.0); LYMPHOCYTES # (AUTO) 1.8 (1.0-3.2); LYMPHOCYTES % 16.6 % (18.0-39.1); MEAN CORPUSCULAR HEMOGLOBIN 29.9 pg (28-32); MEAN CORPUSCULAR HGB CONC 33.1 g/dL (31-35); MEAN CORPUSCULAR VOLUME 90.3 fL (81-99); MONOCYTES # (AUTO) 0.8 (0.2-0.8); MONOCYTES % 7.4 % (4.4-11.3); NEUTROPHILS % 75.4 % (38.7-80.0); PLATELET COUNT 280 x10e3/uL (140-360); RED BLOOD COUNT 4.22 x10e6/uL (3.6-5.1); RED CELL DISTRIBUTION WIDTH 13.6 % (11.7-14.4)
[2020-02-02] MEDS: ONDANSETRON HCL INJ 2MG/ML 2ML 2 MG/ML VIAL IV PRN (05:50)
[2020-02-02] MEDS ORDERED: SIMETHICONE 80 MG CHEW PO PRN ×2 (06:00→10:00)
[2020-02-02 06:32] LABS: ALANINE AMINOTRANSFERASE 32 IU/L (0-55); ALBUMIN 3.8 g/dL (3.5-5.0); ALKALINE PHOSPHATASE 62 IU/L (40-150); ANION GAP 12.9 mmol/L (8-16); BLOOD UREA NITROGEN 8 mg/dL (7-26); BUN/CREATININE RATIO 10 (6-25); CALCIUM 9.6 mg/dL (8.4-10.2); CARBON DIOXIDE 26 mmol/L (22-29); CHLORIDE 101 mmol/L (98-107); CREATININE, SERUM 0.82 mg/dL (0.57-1.11); EST GLOMERULAR FILTRATION RATE > 60 ML/MIN (60-); GLUCOSE 99 mg/dL (74-118); MAGNESIUM 1.8 MG/DL (1.3-2.1); PHOSPHORUS 3.1 MG/DL (2.3-4.7); POTASSIUM 3.9 mmol/L (3.5-5.1); SODIUM 136 mmol/L (136-145)
--- NOTE | 2020-02-02 07:00 | NUR ---
received bedside report. pt is alert resting in bed, no s/s of distress. call light within reach and instructed pt to call RN for help
--- NOTE | 2020-02-02 08:52 | NUR ---
Progress Note S: No major complaints O: AF, VSS, labs reviewed (wnl) General- no distress Abd- soft, incisions c/d/i A/P: POD 1, s/p Lap hiatal hernia repair with sleeve gastrectomy -Clears, ambulate, IS, OOB to chair -DC home today -Diet and follow up instructions given to patient
[2020-02-02] MEDS: HYDROCODONE/APAP 7.5MG-325MG 1 EA TAB PO PRN (09:02)
[2020-02-02] MEDS: ENOXAPARIN SOD INJ 40 MG/0.4 ML SYR SC SCH ×2 (09:05→20:55)
--- NOTE | 2020-02-02 10:22 | Progress Note ---
DATE: 02/02/2020 CHIEF COMPLAINT/HISTORY OF PRESENT ILLNESS: This is a 39-year-old woman, who yesterday underwent laparoscopic hiatal hernia repair and vertical sleeve gastrectomy. These two surgical procedures were performed successfully by her general surgeon, namely Dr. Juan Manuel Torres. The patient denies any nausea or vomiting. The patient states she still has discomfort in her left chest and left shoulder area, which she attributes to gas pains. The patient states she still has not experienced any flatus, but she is experiencing eradication. The patient denies any shortness of breath or cough. Complete blood count and comprehensive metabolic profile are completely normal today. REVIEW OF SYSTEMS: As per HPI. PHYSICAL EXAMINATION: GENERAL: GENERAL: She is awake, alert and fully oriented. She appears uncomfortable, but does not appear to be in any obvious acute distress. VITAL SIGNS: Height 5 feet 2 inches, weight is 244 pounds, BMI 44, blood pressure 160/100, pulse is 78, respiratory rate is 18, temperature 98.4, the patient's oxygen saturation 96% on 2 L oxygen. INTEGUMENT: Skin is warm and dry. No pallor, jaundice, diaphoresis. HEENT: Anterior sclerae with moist mucous membranes. NECK: Supple. CARDIOVASCULAR: Distant heart sounds. Regular rate and rhythm. LUNGS: No rales, no rhonchi. No wheezes. ABDOMEN: Soft. She has faint bowel sounds. Laparoscopic incisions are clean, dry, and intact. No drainage. EXTREMITIES: No edema or deformity. She is wearing sequential compression devices. NEUROLOGIC: Intact. DIAGNOSES: 1. Status post laparoscopic vertical sleeve gastrectomy. 2. Status post hiatal hernia repair. 3. Extreme obesity, BMI 44, complicating underlying hypertension and gastroesophageal reflux disease. 4. Hypertension, likely. PLAN: 1. Monitor blood pressure. 2. We will prescribe simethicone 160 mg t.i.d., scheduled for patient's gas pains. 3. Recommend mobilization through ambulation. 4. Recommend the patient continue using incentive spirometer to help prevent atelectasis. 5. We will honor the patient's wishes and not administer enoxaparin for deep venous thrombosis prophylaxis, but will continue sequential compression devices. I spent 30 minutes in the care of the patient. Discharge planning tentatively for tomorrow, Saturday, February 03, 2020. MD SADE Toth /[id number] DICK
[2020-02-02] MEDS: SIMETHICONE 80 MG CHEW PO SCH ×3 (10:23→20:55)
[2020-02-02] MEDS ORDERED: ONDANSETRON HCL 4 MG ORAL DISINTEGRATING TAB PO PRN (13:15)
--- NOTE | 2020-02-02 14:33 | NUR ---
Nutrition Screen Note RD Recommendation for Physician: - Advancement of diet per MD Plan of Care: RD following, monitoring for tolerance and adequacy - Diet education provided 02/01 Nutrition reason for involvement: MD Consult- diet education Primary Diagnose(s): laparoscopic vertical sleeve gastrectomy PMH: GERD, hiatal hernia, obesity Ht: 62 in Wt: 244 lb BMI: 44.6 kg/m2 IBW: [address] Assessment: (02/01) 39 YOF admitted for gastric bypass surgery, seen today per MD consult for diet education. Pt receptive to diet education at time of visit, pt educated on recommended diet progression and items to each during each phase. Reviewed recommended protein supplements as well as vitamin and mineral supplements. Pt with no questions or concerns at time of visit. Pt with some N/V post operatively. Chart reviewed. Labs and meds reviewed. Will continue to monitor. Current Diet: bariatric clear liquid Malnutrition Evaluation (02/02/20) The patient does not meet criteria for a specified degree of malnutrition at this time. Will re-evaluate at follow-up as appropriate. Diet Education Needs Assessment: Diet education indicated, pt receptive and diet education provided 02/01. Learner(s): pt Barriers: none Cultural/Language Modifications: none Readiness: ready Method: handouts, discussion Topics: post gastric bypass diet progression- clear liquids, full liquids, pureed, soft diets, and supplementation Understanding/Compliance: Diet tolerance: tolerance varies- N/V Nutrition Care Level: low Signed: Judith Bright RD, LD, [facility]
--- NOTE | 2020-02-02 14:33 | NUR ---
pt is sleeping comfortably, no s/s of distress. call light within reach
[2020-02-02] MEDS ORDERED: FENTANYL CITRATE/PF 100MCG/2 ML INJ ONE (15:59)
[2020-02-02] MEDS ORDERED: MIDAZOLAM HCL 2 MG/2 ML VIAL ONE (15:59)
--- NOTE | 2020-02-02 20:27 | NUR ---
Received report from nurse. Walking rounds completed.
[2020-02-03] VITALS: BP 151/91
--- NOTE | 2020-02-03 | NUR ---
Patient ambulated in the halls. IV restarted right AC . Given gas pains. Meds given. Patient in bed resting quitly at this time. Patient received pain meds. 5 trocar sites noted which are dry and intact.
[2020-02-03 04:00] VITALS: BP 141/84
--- NOTE | 2020-02-03 04:41 | NUR ---
Patient resting quitly at this time. IV resited to right AC 20G x1 stick. Patient tolerated well.
[2020-02-03 05:53] LABS: BASOPHILS % 0.3 % (0.0-1.0); EOSINOPHILS # (AUTO) 0.1 (0.0-0.4); EOSINOPHILS % 0.6 % (0.0-6.0); HEMOGLOBIN 13.1 g/dL (12.0-16.0); LYMPHOCYTES # (AUTO) 2.6 (1.0-3.2); LYMPHOCYTES % 25.5 % (18.0-39.1); MEAN CORPUSCULAR HEMOGLOBIN 29.6 pg (28-32); MEAN CORPUSCULAR HGB CONC 32.8 g/dL (31-35); MEAN CORPUSCULAR VOLUME 90.3 fL (81-99); MONOCYTES # (AUTO) 0.9 (0.2-0.8); MONOCYTES % 8.7 % (4.4-11.3); NEUTROPHILS # (AUTO) 6.5 (2.1-6.9); NEUTROPHILS % 64.6 % (38.7-80.0); PLATELET COUNT 269 x10e3/uL (140-360); RED BLOOD COUNT 4.43 x10e6/uL (3.6-5.1); RED CELL DISTRIBUTION WIDTH 13.6 % (11.7-14.4)
[2020-02-03 06:22] LABS: ALANINE AMINOTRANSFERASE 26 IU/L (0-55); ALBUMIN 3.6 g/dL (3.5-5.0); ALBUMIN/GLOBULIN RATIO 0.9 (0.8-2.0); ALKALINE PHOSPHATASE 64 IU/L (40-150); ANION GAP 15.7 mmol/L (8-16); BLOOD UREA NITROGEN 11 mg/dL (7-26); BUN/CREATININE RATIO 11 (6-25); CALCIUM 9.2 mg/dL (8.4-10.2); CARBON DIOXIDE 25 mmol/L (22-29); CHLORIDE 101 mmol/L (98-107); CREATININE, SERUM 0.97 mg/dL (0.57-1.11); EST GLOMERULAR FILTRATION RATE > 60 ML/MIN (60-); GLUCOSE 85 mg/dL (74-118); POTASSIUM 3.7 mmol/L (3.5-5.1); SODIUM 138 mmol/L (136-145)
[2020-02-03 08:02] VITALS: BP 153/89
[2020-02-03 08:12] VITALS: BP 153/89
--- NOTE | 2020-02-03 09:03 | Discharge Summary ---
ADMIT DIAGNOSES: 1. Extreme obesity, BMI 44, complicating underlying gastroesophageal reflux disease. 2. Gastroesophageal reflux disease secondary to hiatal hernia. 3. Hypertension. DISCHARGE DIAGNOSES: 1. Status post laparoscopic vertical sleeve gastrectomy. 2. Status post laparoscopic hiatal hernia repair. 3. Extreme obesity, BMI 44, complicating underlying hypertension and gastroesophageal reflux disease. 4. Gastroesophageal reflux disease. HOSPITAL COURSE: A 39-year-old woman, who was initially admitted to [facility] with diagnosis of extreme obesity, BMI 44, that was complicating underlying GERD. During this hospitalization, the patient was found to be hypertensive. The patient's blood pressure normalized once her pain was controlled. During this hospital stay, the patient underwent successful laparoscopic vertical sleeve gastrectomy as well as hiatal hernia repair. This surgery was performed by Dr. Juan Manuel Torres. The patient did stay one extra day in the hospital because she was having significant amount of gas pains. On the day of discharge, she was tolerating a full liquid diet. CONDITION ON DISCHARGE: Stable. DISCHARGE MEDICATIONS: 1. Multivitamin once daily. 2. Tylenol No. 3 one tablet every 4 hours p.r.n. pain, 30 prescribed, no refills. 3. Ondansetron 4 mg one tablet every 6 hours p.r.n. nausea and vomiting, 20 prescribed, no refills. 4. Protonix 40 mg one tablet every morning. FOLLOWUP INSTRUCTIONS: The patient is instructed to follow up Dr. Juan Manuel Torres in one week and with her primary care physician in 2 weeks. MD TERESA Toth/MELISSA /[id number] cc: Juan Manuel Torres MD MTDD
[2020-02-03] MEDS ORDERED: PANTOPRAZOLE 40 MG 10ML VIAL IV ONE (09:15)
[2020-02-03] MEDS: ENOXAPARIN SOD INJ 40 MG/0.4 ML SYR SC SCH (09:29)
[2020-02-03] MEDS: SIMETHICONE 80 MG CHEW PO SCH ×2 (09:29→15:40)
[2020-02-03 12:02] VITALS: BP 147/96
[2020-02-03 15:41] VITALS: BP 169/92
[2020-02-03] MEDS: HYDROCODONE/APAP 7.5MG-325MG 1 EA TAB PO PRN (15:41)
[2020-02-03] MEDS ORDERED: PANTOPRAZOLE SO40 MG PO (16:53)
[2020-02-03] MEDS ORDERED: TYLENOL WITH C1 EACH PO (16:53)
[2020-02-03] MEDS ORDERED: ZOFRAN8 MG PO (16:54)
[2020-02-03] MEDS: MORPHINE SULFATE 2 MG/ML SYR 1ML IV PRN (17:00)
== END 2020-02-03 18:07 | disposition home or self-care (01) | DRG 621 ==
LOC: OR 09:42 → PACU V 13:46 → MED/SURG 17:33
PROVIDERS: ADMIT Internal Medicine; ATTEND Internal Medicine
PROC: 0BQT4ZZ Repair Diaphragm, Percutaneous Endoscopic Approach (ICD-10-PCS; principal; 2020-02-01 12:00)
PROC: 0DB64Z3 Excision of Stomach, Percutaneous Endoscopic Approach, Vertical (ICD-10-PCS; 2020-02-01 12:00)
DX: E66.01 Morbid (severe) obesity due to excess calories (principal); K44.9 Diaphragmatic hernia without obstruction or gangrene; Z68.41 Body mass index [BMI] 40.0-44.9, adult; K21.9 Gastro-esophageal reflux disease without esophagitis; Z82.49 Family history of ischemic heart disease and other diseases of the circulatory system; I10 Essential (primary) hypertension
CPT/HCPCS: 36415; 80053; 81025; 83735; 84100; 85025; 87635; J0690; J1170; J1650; J1885; J2250; J2270; J2405; J3010; J7121; Q0162